=== PATIENT | female | born 1990 | race Two or more races ===

== ENCOUNTER 2016-06-15 13:59 | Emergency (ER) | payer SELFPAY ==
[2016-06-15] MEDS ORDERED: KEFLEX500 M4 PO (16:02)
[2016-06-15] MEDS ORDERED: IBUPROFEN600 M1 PO (16:02)
[2016-06-15] MEDS ORDERED: NORCO 7.5-3251 EACH PO (16:02)
[2016-06-15] MEDS ORDERED: PERCOCET 5-3251 EACH PO (16:23)
== END 2016-06-15 16:35 ==
LOC: EDMED 13:59
DX: K08.89 Other specified disorders of teeth and supporting structures (principal)